=== PATIENT | male | born 1955 | race Caucasian/White ===

== ENCOUNTER → 2019-10-01 10:29 | Outpatient (CLI) | payer OTHER, SELFPAY ==
[2019-10-01 12:20] LABS: Hemoglobin A1C% w Est Avg Glu 6.7 % (4.0-6.0)
[2019-10-01 12:22] LABS: Alanine Aminotransferase 26 IU/L (<50); Albumin 4.1 g/dL (3.5-5.0); Albumin Globulin Ratio 1.4 (1.0-2.8); Alkaline Phosphatase 77 U/L (38-126); Aspartate Aminotransferase 25 IU/L (17-59); BUN Creatinine Ratio 16.3 (6-22); Bilirubin Total 0.6 mg/dL (0.2-1.3); Blood Urea Nitrogen 14 mg/dL (9-20); Calcium 9.5 mg/dL (8.4-10.2); Carbon Dioxide 23 mmol/L (22-32); Chloride 106 mmol/L (98-107); Cholesterol 181 mg/dL (140-199); Estimated Glomerular Filt Rate > 60.0 mL/min (>60); Glucose 124 mg/dL (80-110); HDL Cholesterol 50 mg/dL (40-60); HEMOLYSIS < 15 (0-50); LDL Cholesterol Calculated 113 mg/dL (<100); Potassium 4.2 mmol/L (3.4-5.1); Sodium 138 mmol/L (137-145); Total Protein 7.1 g/dL (6.3-8.2); Triglycerides 91 mg/dL (35-150)
[2019-10-01 12:54] LABS: Creatinine Urine Random 156.1 mg/dL
[2019-10-01 12:59] LABS: Microalbumi Creatinin Ratio Ur 3.8 ug/mg CR (<30); Microalbumin Urine Random < 0.6 mg/dL (0-1.6)
--- NOTE | 2019-10-01 16:25 | DIET.PN ---
Diabetes Intake: Initial Assessment Assess: Mr. Griggs is 64 YOm referred for type 2 diabetes. He reports not following any specific dietary guidelines for years. He has a hx of anxiety and depression and admits he has not cared much about his weight or health. He has tried several diets in the past including atkins and zone. He used to be very active with his , but does not do much outside of walking his dog now. He monitors his fasting blood glucose a few times/week. He does appear ready for change. Labs: Per pt report: 10.9 Meds: met 500 mg BID Diet: per 24 hr recall: B: coffee L: oatmeal w/ sugar and raisins Sn: sandwich D: varies, often just snacks Wt: 320lb Ht: 74in BMI: 41 DX: Altered nutrition related laboratory values related to impaired glucose metabolism, lack of previous exposure to nutrition information as evidenced by pt report, diagnosis of diabetes, previous diet high in refined carbohydrates. Intervention: 1. Completed intake assessment. Discussed barriers to care. 2. Discussed pathophysiology of diabetes. Reviewed A1c and its correlation to blood glucose numbers. Discussed recommended BG ranges. 3. Discussed importance of self-monitoring, how often, and when to check. Provided demonstration on use of glucometer. 4. Reviewed hyper/hypoglycemia and treatment. 5. Reviewed safe disposal of equipment (strip/lancets/insulin needles). 6. Created SMART goals for pt self-care and success. 7. Discussed program curriculum outline and class needs based on individual goals. SMART Goals: 1. Pt would like to lose 15# (5%) in the next 3 mo with a goal of 230# through dietary changes and exercise. Discussed joining a fitness center of accountability. 2. Pt will monitor FBG and alternate 2hr PP meal time. Monitor/Evaluate: Anticipate good compliance. Pt will attend full DSME program. Nutrition class scheduled for October 08.
== END ==
PROVIDERS: Family Provider Family Medicine; PCP Family Medicine; Referring Provider Family Medicine; Visit Provider Family Medicine
DX: E11.9 Type 2 diabetes mellitus without complications (principal); Z79.84 Long term (current) use of oral hypoglycemic drugs; E66.9 Obesity, unspecified; Z68.41 Body mass index [BMI] 40.0-44.9, adult; Z71.3 Dietary counseling and surveillance
CPT/HCPCS: 36415; 80053; 80061; 82043; 82570; 83036; 84443; G0108

== ENCOUNTER → 2019-10-09 09:56 | Outpatient (CLI) | payer OTHER, SELFPAY ==
--- NOTE | 2019-10-09 12:26 | DIET.PN ---
Diabetes: Healthy Eating 2 Intervention: Fats effects on glucose, weight, heart disease, cholesterol Sat Vs Unsat Protein- animal and plant based options Low, med, high fat meats Sugar substitutes Sodium Health claims Grocery shopping guidelines Eating away from home Alcohol Sick day guidelines Ketone Testing
== END ==
PROVIDERS: Family Provider Family Medicine; PCP Family Medicine; Referring Provider Family Medicine; Visit Provider Family Medicine
DX: E11.9 Type 2 diabetes mellitus without complications (principal); Z71.3 Dietary counseling and surveillance
CPT/HCPCS: G0109

== ENCOUNTER → 2019-10-14 10:04 | Outpatient (CLI) | payer OTHER, SELFPAY ==
--- NOTE | 2019-10-14 12:11 | DIET.PN ---
Diabetes Physiology: Intervention 1. Diabetes physiology 2. Detecting and treatment of acute and chronic complications 3. Diagnosis of and difference in types of diabetes 4. Self-monitoring and pattern management a. Demonstrate glucometer and control testing b. Explain BG results and action to take when out of range. 5. Foot , eye, dental care 6. Medications a. Oral medication classification b. Injectable c. Insulin i. Injection protocol ii. Other delivery methods
== END ==
PROVIDERS: Family Provider Family Medicine; PCP Family Medicine; Referring Provider Family Medicine; Visit Provider Family Medicine
DX: E11.9 Type 2 diabetes mellitus without complications (principal); Z71.3 Dietary counseling and surveillance
CPT/HCPCS: G0109

== ENCOUNTER → 2019-10-23 09:43 | Outpatient (CLI) | payer OTHER, SELFPAY ==
--- NOTE | 2019-10-23 11:39 | DIET.PN ---
Exercise/Lifestyle change: 1. Importance of exercise 2. FITT (frequency, intensity, time, type) 3. Strength training tips and guidelines 4. Glucose monitoring/ranges before and after a. Carbohydrate needs based on glucose ranges and duration/intensity of exercise b. Rule of 15 5. Proper foot attire 6. Developing strategies for behavior change 7. SMART Goal Setting 8. Home exercise routine demonstration (as a class)
== END ==
PROVIDERS: Family Provider Family Medicine; PCP Family Medicine; Referring Provider Family Medicine; Visit Provider Family Medicine
DX: E11.9 Type 2 diabetes mellitus without complications (principal); Z71.3 Dietary counseling and surveillance
CPT/HCPCS: G0109

== ENCOUNTER → 2019-10-28 14:19 | Outpatient (CLI) | payer OTHER, SELFPAY ==
--- NOTE | 2019-10-28 16:30 | DIET.PN ---
Diabetes: Healthy Eating 1 Intervention: ? Discussed pathophysiology of diabetes and impact of nutrition/diet on blood sugar control.? Discussed fed versus non-fed state.?? ? Reviewed importance of Balance, Variety, and Moderation. ? Discussed the effect of carbohydrates/protein/fat on blood sugar control.? ? Stressed importance of consistent carbohydrate intake at each meal and provided instructions for recommended servings/portions of carbohydrates/protein per meal. Provided educational material. ? Reviewed carbohydrate counting and measuring carbohydrate content via serving sizes and reading nutrition labels.? Provided handouts.?? ? Discussed the difference between simple versus complex carbohydrates and the effect of fiber on blood sugar control.? Discussed various methods to increase fiber content in diet. ? Discussed the plate method for creating more carbohydrate conscious balanced meals. ? Stressed importance of meal timing and not going >4-5 hours between meals. Encouraged adding protein to evening snack to support glucose control overnight. ? Discussed importance of making dietary habits part of lifestyle change.
== END ==
PROVIDERS: Family Provider Family Medicine; PCP Family Medicine; Referring Provider Family Medicine; Visit Provider Family Medicine
DX: E11.9 Type 2 diabetes mellitus without complications (principal); Z71.3 Dietary counseling and surveillance
CPT/HCPCS: G0109

== ENCOUNTER → 2019-11-05 09:55 | Outpatient (CLI) | payer OTHER, SELFPAY ==
[2019-11-05 09:57] VITALS: BMI 40.9
--- NOTE | 2019-11-05 11:07 | DIET.PN ---
DIABETES Nutrition Initial Assessment:? ASSESS:??Mr. Campos is a 64 yom??referred for type 2 diabetes seen as part of DSME program. He reports biggest changes to dietary habits include reduced portion sizes and consuming less/infrequent sweets and treats. He continues to walk daily, but has not yet purchased home fitness equipment or began working with a horse trainer. He does endorse feeling more excited to make some changes and feels the support of the diabetes program has been motivating. ??? LABS: Per pt report:? 6.7 (10.9 at intake) Lipids: Chol: 181 LDL: 113 HDL: 50 Tr ? MEDS:?? metformin 500mg BID ? DIET: Per 24-hour recall:? B: coffee L: oatmeal w/ raisins Sn: sandwich D: varies Eating Out: none Changes in Appetite: no change Nutrition Supplements: ? Weight: 318lb Height: 74in BMI: ? 40.8 ? Exercise:? walks his dog daily BP: 127/80 NUTRITION DX 1. Altered Nutrition related labs related to impaired glucose metabolism, lack of previous exposure to accurate nutrition information as evidenced by pt report, dx of diabetes, previous diet high in refined carbohydrates.? INTERVENTION(s): 1. Reviewed pathophysiology of diabetes and impact of nutrition/diet on blood sugar control.? Discussed fed versus non-fed state.?? 2. Discussed the effect of carbohydrates/protein/fat on blood sugar control.? Stressed importance of consistent carbohydrate intake at each meal and provided instructions for recommended servings/portions of carbohydrates/protein per meal. Provided pt with educational material. 3. Reviewed carbohydrate counting and measuring carbohydrate content via serving sizes and reading nutrition labels.? Provided handouts.?? 4.Discussed the difference between simple versus complex carbohydrates and the effect of fiber on blood sugar control.? Discussed various methods to increase fiber content in diet. 5. Stressed importance of meal timing and not going >4-5 hours between meals. Encouraged adding protein to evening snack to support glucose control overnight. Patient agreeable. 6. Discussed healthy weight loss goals of 1-2lbs per week through diet and exercise.? Pt agreeable to walking at least 30 minutes daily. 7. Recommend monitoring fasting and alternating 2 hr PP mealtime glucose. MONITOR/EVALUATE: Anticipate good compliance.? Nutrition follow-up scheduled for 1 month.
== END ==
PROVIDERS: Family Provider Family Medicine; PCP Family Medicine; Referring Provider Family Medicine; Visit Provider Family Medicine
DX: E11.9 Type 2 diabetes mellitus without complications (principal); Z71.3 Dietary counseling and surveillance
CPT/HCPCS: G0109

== ENCOUNTER 2021-03-03 08:05 | Emergency (ER) | payer MEDICARE, SELFPAY ==
[2021-03-03 08:12] VITALS: BP 160/86; PULSE 85; RESP 17; TEMP 36.5; O2SAT 95; BMI 94.2
--- NOTE | 2021-03-03 08:21 | DI.CT.S_ITS ---
PROCEDURE: CT LUMBAR SPINE WO CON INDICATIONS: Pain/right hip/normal x-rays TECHNIQUE: Noncontrast 3 mm thick sections acquired from the T12 level to the sacrum. Sagittal and coronal reformats were constructed. For radiation dose reduction, the following was used: automated exposure control. COMPARISON: None. FINDINGS: Image quality: Excellent. Bones: No acute fracture. Multilevel degenerative endplate sclerosis and spurring. Diffuse facet arthropathy. Diffuse mild disc space narrowing throughout the lumbar spine except at L5-S1 where there is severe disc height loss. Scattered small Schmorl's nodes are seen primary involving the inferior endplates of L1, L2 and L3. Straightening of the normal lordotic curvature. Dense sclerotic lesion involving the upper anterior aspect of the L4 vertebral body measuring 1.2 cm T12-L1: No bony canal or foraminal stenosis. L1-L2: No bony canal or foraminal stenosis identified. L2-L3: No bony canal or foraminal stenosis. L3-L4: No bony canal or foraminal stenosis. L4-L5: No bony canal stenosis. Broad-based posterior disc bulge with moderate canal narrowing. Partial effacement of both lateral recesses with bilaterally symmetric appearance. No bony foraminal narrowing. L5-S1: Broad-based posterior disc bulge. Mild canal narrowing. No bony canal stenosis. Lateral recesses appear grossly patent. Mild bony foraminal narrowing. Soft tissues: No retroperitoneal masses or hematomas. Visualized aorta is normal in caliber. IMPRESSION: Lower lumbar spondylosis and facet arthropathy. No high-grade bony foraminal stenoses. Moderate canal narrowing at L4-L5. Elsewhere no high-grade bony canal narrowing. No acute fracture Scattered small Schmorl's nodes. Further evaluation with MRI to assess for adjacent acute marrow edema could be performed as clinically warranted. Dictated by: Hamzah Avila M.D. on 03/03/2021 at 10:51 Approved by: Hamzah Avila M.D. on 03/03/2021 at 10:57
--- NOTE | 2021-03-03 08:21 | DI.CT.S_ITS ---
PROCEDURE: CT PEL WO CON INDICATIONS: Pain/right hip/normal x-rays TECHNIQUE: Noncontrast 3 mm axial sections acquired through the bony pelvis, with coronal and sagittal reformatting. COMPARISON: None. FINDINGS: Image quality: Excellent. Bones: No acute fracture identified. Mild bilateral hip joint degeneration with symmetric appearance. Mild degenerative sclerotic changes at the pubis symphysis. The sacroiliac joints appear grossly unremarkable. Lower lumbar spondylosis and facet disease. Densely sclerotic lesion involving the L4 vertebral body. This measures approximately 9 mm Soft tissues: Bladder distended otherwise intrapelvic contents grossly unremarkable. IMPRESSION: Mild bilateral symmetric hip joint degeneration. If the patient's pain or other symptoms persist, consider further evaluation with MRI Densely sclerotic lesion involving the L4 vertebral body. Although this could represent bone island cannot exclude osseous metastasis given the absence of any relevant prior comparison studies. Recommend clinical correlation. If necessary, further evaluation with bone scan could be performed. Dictated by: Hamzah Avila M.D. on 03/03/2021 at 9:48 Approved by: Hamzah Avila M.D. on 03/03/2021 at 9:51
--- NOTE | 2021-03-03 08:22 | ED_ITS ---
HPI - Extremity Injury (Lower) General Chief Complaint: Extremity Injury, Lower Stated Complaint: having pain in rt hip Time Seen by Provider: 03/03/21 08:12 Source: patient Mode of arrival: Ambulatory Limitations: no limitations History of Present Illness HPI Narrative: Patient seen by his family doctor in [place] within the last 3 weeks for this right pelvis/hip pain. Had x-rays done and patient states no acute abnormality. Denies any fall injury. No leg or foot numbness tingling or weakness. No saddle paresthesia. No bowel or bladder incontinence or retention. Patient complains of right gluteal pain/right hip pain. Denies any direct low back pain. No history of chronic back pain or surgery or physical therapy. Has had events of heavy lifting with work related. Denies any chronic back pain. No fever chills. No prior history of hip problems. Primary care had him on ibuprofen only. It has not helped the pain. drove him here this morning. Related Data Previous Rx's Medication Instructions Recorded hydrocodone 5 mg-acetaminophen 325 1 tab PO Q6H PRN #16 tab 03/03/21 mg tablet ondansetron 4 mg disintegrating 4 mg PO Q8H PRN #10 tab 03/03/21 tablet Allergies Allergy/AdvReac Type Severity Reaction Status Date / Time No Known Drug Allergies Allergy Verified 03/03/21 11:32 Review of Systems Review of Systems Narrative: GENERAL: Denies chills, fatigue, malaise, fever, sweats. HEENT: Denies sinus pain, ear pain, sore throat RESPIRATORY: Denies dyspnea, cough CARDIOVASCULAR: Denies chest pain, palpitations GASTROINTESTINAL: Denies nausea, vomiting, abdominal pain : Denies dysuria, frequency, hematuria MUSCULOSKELETAL: Positivemuscle or bony pain SKIN: Denies rash, skin lesions NEUROLOGIC: Denies weakness, numbness, no incontinence or retention ROS Unobtainable: All systems reviewed & are unremarkable except as noted in HPI and below Patient History Social History eating out: rarely or never Type(s) of exercise: walking Exam Narrative Exam Narrative: GENERAL: in no distress, not toxic not dyspneic HEAD: Normocephalic. EYES: Pupils equal round No scleral icterus. ENT: Mucous membranes moist. NECK: Trachea midline. CARDIOVASCULAR: Regular rate and rhythm without murmurs RESPIRATORY: Clear to auscultation. Breath sounds equal bilaterally. No wheezes, rales, or rhonchi. GASTROINTESTINAL: Abdomen soft, non-tender EXTREMITIES: No gross deformities. BACK: No flank tenderness. No midline tenderness or step-off. Increased pain with leaning forward. Right straight leg pain at 30?, pain in the right pelvis/hip. NEURO: AOx4. Slightly antalgic gait due to pain to the right hip pelvis area. No footdrop. Strong bilateral patellar reflexes and light touch intact to foot and toes. Shoes and socks removed. Feet warm soft and pink. Strong bilateral ankle flexion extension. SKIN: Warm and dry PSYCH: Not anxious, is cooperative Initial Vital Signs Initial Vital Signs: Vital Signs Temperature 97.7 F 03/03/21 08:12 Pulse Rate 85 03/03/21 08:12 Respiratory Rate 17 03/03/21 08:12 Blood Pressure 160/86 H 03/03/21 08:12 Pulse Oximetry 95 03/03/21 08:12 Course Course Course Narrative: No new issues during course of stay Orders Ordered: ED Orders 03/03/21 08:21 CT lumbar spine wo con Stat CT pelvis wo con Stat Discontinued Medications Hydrocodone Bitart/Acetaminophen (Hydrocodone/Acet 5/325 Tablet) 2 tab PO NOW ONE Stop: 03/03/21 08:23 Last Admin: 03/03/21 08:31 Dose: 2 tab Documented by: DESTINY Ketorolac Tromethamine (Ketorolac 30 Mg/Ml Vial) 30 mg IM NOW ONE Stop: 03/03/21 11:27 Last Admin: 03/03/21 11:33 Dose: 30 mg Documented by: RAUL Ondansetron HCl (Ondansetron 4 Mg Odt) 4 mg SL NOW ONE Stop: 03/03/21 08:23 Last Admin: 03/03/21 08:31 Dose: 4 mg Documented by: DESTINY Oxycodone/Acetaminophen (Oxycodone/Acetaminophen 5/325 Tablet) 2 tab PO NOW ONE Stop: 03/03/21 11:27 Last Admin: 03/03/21 11:33 Dose: 2 tab Documented by: RAUL Reevaluation(s) Reevaluation #1: Pain controlled. No laboratory studies indicated this time. No fever chills. Reviewed results with patient agrees with treatment plan and follow-up with primary care for outpatient MRI of the hip as well as the lumbar spine. 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:16 Vital Signs Vital signs: Vital Signs - 8 hr 03/03/21 08:12 03/03/21 11:30 Temperature 97.7 F Pulse Rate 85 76 Respiratory Rate 17 15 Blood Pressure 160/86 H 126/77 Pulse Oximetry 95 99 MDM - Extremity Injury (Lower) Differential Diagnosis Differential diagnosis: Likely other (Hip arthritis/sciatica/degenerative disc disease of the lumbar spine.) Imaging Data CT scan lumbar spine: Radiologist's Impression: [address] [address] [address] Scan Report Signed Patient: Rohit Griggs MR#: [id number] : 1955 Acct:[id number] Age/Sex: 66 / M Date of Service: 03/03/21 Loc: ED Accession Number: [id number] ?? Procedure: CT pelvis wo con Ordering Provider: Maxi Spivey MD PROCEDURE:? CT PEL WO CON ? INDICATIONS:? Pain/right hip/normal x-rays ? TECHNIQUE:? Noncontrast 3 mm axial sections acquired through the bony pelvis, with coronal and sagittal reformatting.? ? COMPARISON:? None. ? FINDINGS:? Image quality:? Excellent.? ? Bones:? No acute fracture identified.? Mild bilateral hip joint degeneration with symmetric appearance.? Mild degenerative sclerotic changes at the pubis symphysis.? The sacroiliac joints appear grossly unremarkable.? Lower lumbar spondylosis and facet disease.? Densely sclerotic lesion involving the L4 vertebral body.? This measures approximately 9 mm ? Soft tissues:? Bladder distended otherwise intrapelvic contents grossly unremarkable. ? ? IMPRESSION:? ? Mild bilateral symmetric hip joint degeneration. If the patient's pain or other symptoms persist, consider further evaluation with MRI ? Densely sclerotic lesion involving the L4 vertebral body.? Although this could represent bone island cannot exclude osseous metastasis given the absence of any relevant prior comparison studies.? Recommend clinical correlation.? If necessary, further evaluation with bone scan could be performed. ? Dictated by: Hamzah Avila M.D. on 03/03/2021 at 9:48 ? ? Approved by: Hamzah Avila M.D. on 03/03/2021 at 9:51 ? CT scan pelvis: Radiologist's Impression: [address] [address] [address] Scan Report Signed Patient: Rohit Griggs MR#: [id number] : 1955 Acct:[id number] Age/Sex: 66 / M Date of Service: 03/03/21 Loc: ED Accession Number: [id number] ?? Procedure: CT lumbar spine wo con Ordering Provider: Maxi Spivey MD PROCEDURE:? CT LUMBAR SPINE WO CON ? INDICATIONS:? Pain/right hip/normal x-rays ? TECHNIQUE:? Noncontrast 3 mm thick sections acquired from the T12 level to the sacrum.? Sagittal and coronal reformats were constructed.? For radiation dose reduction, the following was used:? automated exposure control.? ? COMPARISON:? None. ? FINDINGS:? Image quality:? Excellent.? ? Bones:? No acute fracture. Multilevel degenerative endplate sclerosis and spurring.? Diffuse facet arthropathy.? Diffuse mild disc space narrowing throughout the lumbar spine except at L5-S1 where there is severe disc height loss.? Scattered small Schmorl's nodes are seen primary involving the inferior endplates of L1, L2 and L3. Straightening of the normal lordotic curvature.? Dense sclerotic lesion involving the upper anterior aspect of the L4 vertebral body measuring 1.2 cm ? T12-L1:? No bony canal or foraminal stenosis. ? L1-L2:? No bony canal or foraminal stenosis identified. ? L2-L3:? No bony canal or foraminal stenosis. ? L3-L4:? No bony canal or foraminal stenosis. ? L4-L5:? No bony canal stenosis.? Broad-based posterior disc bulge with moderate canal narrowing. Partial effacement of both lateral recesses with bilaterally symmetric appearance.? No bony foraminal narrowing. ? L5-S1:? Broad-based posterior disc bulge.? Mild canal narrowing.? No bony canal stenosis. ?Lateral recesses appear grossly patent.? Mild bony foraminal narrowing. ? Soft tissues:? No retroperitoneal masses or hematomas.? Visualized aorta is normal in caliber.? ? ? IMPRESSION:? ? Lower lumbar spondylosis and facet arthropathy.? No high-grade bony foraminal stenoses. ? Moderate canal narrowing at L4-L5.? Elsewhere no high-grade bony canal narrowing. ? No acute fracture ? Scattered small Schmorl's nodes.? Further evaluation with MRI to assess for adjacent acute marrow edema could be performed as clinically warranted. ? Dictated by: Hamzah Avila M.D. on 03/03/2021 at 10:51 ? ? Approved by: Hamzah Avila M.D. on 03/03/2021 at 10:57 ? MDM Narrative Medical decision making narrative: Appropriate for discharge home. No blood work indicates time. No fever. Pain is controlled. Has a regional refrigerated cdl truck driver. Has primary care to follow-up for outpatient MRI. Return precautions reviewed with patient. Prescription for pain medication written is appropriate as failed outpatient ibuprofen NSAIDs. No steroids at this time. Discharge Plan Departure Patient Disposition: Home Clinical Impression: DDD (degenerative disc disease), lumbar, Acute pain of right hip Instructions: Degenerative Disc Disease, DI for Sciatica, DI for Hip Pain Activity Restrictions/Additional Instructions: No driving or operating machinery today. Or when taking prescribed pain medication. See family doctor within a week for recheck as well as for scheduling outpatient MRI of your lower back and your right hip. Return if worse if any questions or concerns or any fever. Prescriptions: New hydrocodone-acetaminophen 5-325 mg tablet 1 tab PO Q6H PRN (Reason: pain) Qty: 16 0RF ondansetron 4 mg tablet,disintegrating 4 mg PO Q8H PRN (Reason: nausea and vomiting) Qty: 10 0RF Referrals: Ranjeet Andrea MD [Primary Care Provider] -
[2021-03-03] MEDS: HYDROCODONE/ACET 5/325 TABLET 2 TAB PO (08:31)
[2021-03-03] MEDS: ONDANSETRON 4 MG ODT SL (08:31)
[2021-03-03 11:30] VITALS: BP 126/77; PULSE 76; RESP 15; O2SAT 99
[2021-03-03] MEDS: OXYCODONE/ACETAMINOPHEN 5/325 TABLET 2 TAB PO (11:33)
[2021-03-03] MEDS: KETOROLAC 30 MG/ML VIAL IM (11:33)
== END 2021-03-03 11:47 | disposition home or self-care (01) ==
PROVIDERS: Emergency Provider Emergency Medicine; Family Provider Family Medicine; PCP Family Medicine
DX: M25.551 Pain in right hip (principal); M51.36 Other intervertebral disc degeneration, lumbar region
CPT/HCPCS: 72131; 72192; 96372; 99284; J1885

== ENCOUNTER → 2021-03-11 14:03 | Outpatient (CLI) | payer MEDICARE, SELFPAY ==
--- NOTE | 2021-03-11 | DI.MRI.S_ITS ---
PROCEDURE: MR LUMBAR SPINE WO CON INDICATIONS: Radiculopathy, lumbar region TECHNIQUE: Noncontrast sagittal T1 spin echo and T2 fast echo, sagittal STIR, axial T1 and T2 fast spin echo through the lumbar spine. In cases with scoliosis, additional coronal T2 fast spin echo may be performed. COMPARISON: [facility], CT, CT LUMBAR SPINE WO CON, 03/03/2021, 8:54. FINDINGS: Image quality: Excellent. Alignment and Curvature: There is minimal retrolisthesis seen at L2-L3 and L5-S1. Bone Marrow: Marrow is of normal overall signal. Scattered foci are seen, which are hyperintense on T1-weighted and T2-weighted imaging, which are most consistent with benign vertebral body hemangiomas. Focal sclerosis is seen at the superior endplate of L4 anteriorly, which is better seen on the prior CT examination. No acute vertebral body compression fractures. Spinal Cord: Conus medullaris terminates at the L1 level. Visualized cord demonstrates normal signal and size. Paraspinous Soft Tissues: No paravertebral masses. T12-L1: Normal appearance. L1-L2: The disc height is well-preserved. Loss of disc signal is seen at this level. No significant neural foraminal or central canal narrowing can be seen. L2-L3: Mild loss of disc height is seen. Loss of disc signal is seen. Mild generalized disc bulge is seen. Mild facet joint hypertrophy is seen. Bridging endplate osteophytes are seen. No significant neural foraminal or central canal narrowing can be seen. L3-L4: The disc height is well-preserved. Loss of disc signal is seen at this level. Mild generalized disc bulge is seen. Moderate facet joint hypertrophy is seen. Mild to moderate bilateral neural foraminal narrowing can be seen. The central canal is widely patent. L4-L5: The disc height is well-preserved. Loss of disc signal is seen at this level. Mild to moderate disc bulge is seen, which is eccentric to the right, with a right foraminal disc protrusion. There is a disc extrusion seen, with a sequestered disc fragment posterior to the L4 vertebral body on the right, which measures 1.4 cm craniocaudal by 1.4 cm transversely, with an AP measurement of 0.8 cm. Moderate to prominent facet hypertrophy is seen. There is moderate to severe right-sided and at least moderate left-sided neural foraminal narrowing seen. There is a degree of compression seen upon the exiting nerve roots. Moderate central canal narrowing is seen. L5-S1: At least moderate loss of disc height and disc signal can be seen. Reactive marrow endplate changes are seen, which are hyperintense on T1-weighted and T2-weighted imaging and most consistent with fatty metaplasia (Modic type II changes). Mild to moderate disc bulge is seen, with a slight central disc protrusion. Mild to moderate facet hypertrophy is seen. No significant neural foraminal or central canal narrowing can be seen. IMPRESSION: There is a sequestered disc fragment seen on the right side posterior to the L4 vertebral body, which is believed to have been extruded from the L4-L5 disc level. There is associated moderate central canal narrowing and moderate to severe bilateral neural foraminal narrowing at this level. Milder degenerative changes are seen elsewhere. Dictated by: Gil Shah M.D. on 03/11/2021 at 14:33 Approved by: Gil Shah M.D. on 03/11/2021 at 14:43
== END ==
PROVIDERS: Family Provider Family Medicine; PCP Family Medicine; Referring Provider Family Medicine; Visit Provider Family Medicine
DX: M47.26 Other spondylosis with radiculopathy, lumbar region (principal); M47.27 Other spondylosis with radiculopathy, lumbosacral region
CPT/HCPCS: 72148

== ENCOUNTER → 2022-06-09 12:39 | Outpatient (CLI) | payer MEDICARE, OTHER, SELFPAY ==
--- NOTE | 2022-06-09 | DI.CT.S_ITS ---
PROCEDURE: CT SINUS SCREEN WO CON INDICATIONS: NASAL OBSTRUCTION/CHRONIC PANSINUSITIS TECHNIQUE: Noncontrast 3.0 mm axial images acquired from the frontal sinuses to the mid-sella, with coronal and sagittal reformats. For radiation dose reduction, the following was used: automated exposure control, adjustment of mA and/or kV according to patient size. COMPARISON: None. FINDINGS: Image quality: Excellent. Maxillary Sinuses: Mild 3 mm left maxillary sinus mucosal thickening without remodeling without remodeling Ethmoid Air Cells: No bony remodeling or destruction. Sinuses are clear. Sphenoid Sinuses: No bony remodeling or destruction. Sinuses are clear. Frontal Sinuses: Frontal sinuses are both aplastic and non pneumatized Ostiomeatal Complexes: Ostiomeatal complexes are patent. No Lito cells. Miscellaneous: Visualized intra-orbital contents are normal. No adri bullosa or paradoxical turbinate curvature. No nasal septal deviation. IMPRESSION: Mild left maxillary mucosal sinus disease without remodeling Approved by: Bill Chapa M.D. on 06/09/2022 at 16:34
== END ==
PROVIDERS: Family Provider Family Medicine; PCP Family Medicine; Referring Provider Otolaryngology; Visit Provider Otolaryngology
DX: J32.4 Chronic pansinusitis (principal); J34.89 Other specified disorders of nose and nasal sinuses
CPT/HCPCS: 70486

== ENCOUNTER → 2022-08-24 19:31 | Outpatient (CLI) | payer MEDICARE, OTHER, SELFPAY ==
--- NOTE | 2022-08-24 19:33 | DI.MRI.S_ITS ---
PROCEDURE: MR KNEE LT WO CON INDICATIONS: Pain in left knee TECHNIQUE: Noncontrast sagittal PD fast spin echo and T2 fast spin echo with fat saturation, sagittal 3-D FLASH with fat saturation; coronal T1 spin echo and PD fast spin echo with fat saturation, and axial PD fast spin echo with fat saturation through the knee. COMPARISON: None. FINDINGS: Image quality: Diagnostic, patient motion is noted. Menisci: Complex oblique tear involving posterior horn of medial meniscus is seen extending to both superior and inferior articulating surface. The lateral meniscus is intact. The meniscal root ligaments appear intact. Cruciate ligaments: The anterior cruciate ligament is thickened. The posterior cruciate ligament is intact. Medial structures: The medial collateral ligament appears thickened with intrasubstance T2 hyperintense signal. The posterior oblique ligament, semimembranosus tendon insertions, oblique popliteal ligament, and meniscocapsular junction appear intact. Visualized portions of the pes anserinus tendons appear normal. No abnormal bursal fluid. Lateral structures: The lateral collateral ligament, long and short heads of the biceps femoris tendon appear intact. The popliteus tendon appears normal; the popliteofibular ligament appears intact. Iliotibial band appears normal. Anterior structures: The quadriceps and patellar tendons appear intact. Patellar alignment is normal. No femoral trochlear dysplasia or ventral trochlear prominence. No edema in the infrapatellar fat pad. Bones and cartilage: No bone marrow contusions or fractures. 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 Joint space: There is small to moderate knee joint fluid. There is a 2.7 x 1.2 x 8.8 cm Sanon's cyst. No gross intra-articular loose bodies. Normal appearing synovial plicae are incidentally noted. IMPRESSION: 1. Complex oblique tear involving posterior horn of medial meniscus extending to inferior articulating surface. The lateral meniscus is intact. 2. Suggestion of degenerative changes/sprain of ACL. No ACL rupture. The PCL is intact. 3. Moderate grade MCL sprain/partial-thickness tear. 4. Eukh-mk-eqapixqf tricompartmental osteoarthritis and chondromalacia most notably in medial femoral tibial compartment. No fracture or dislocation. Small to moderate joint effusion, no gross loose bodies. Sanon's cyst as above. Dictated by: Milo Crowder M.D. on 08/25/2022 at 8:25 Approved by: Milo Crowder M.D. on 08/25/2022 at 8:51
== END ==
PROVIDERS: Family Provider Family Medicine; PCP Family Medicine; Referring Provider Family Medicine; Visit Provider Family Medicine
DX: S83.232A Complex tear of medial meniscus, current injury, left knee, initial encounter (principal); S83.412A Sprain of medial collateral ligament of left knee, initial encounter; M25.562 Pain in left knee; M17.12 Unilateral primary osteoarthritis, left knee; M94.262 Chondromalacia, left knee; M25.462 Effusion, left knee; M71.22 Synovial cyst of popliteal space [Baker], left knee
CPT/HCPCS: 73721

== ENCOUNTER → 2022-10-09 13:52 | Outpatient (CLI) | payer MEDICARE, SELFPAY ==
[2022-10-09 14:42] LABS: Add Manual Diff / Slide Review NO; Basophils Absolute Auto 100 /uL (0-100); Basophils Percent Auto 1.1 % (0-2); Eosinophils Absolute Auto 200 /uL (0-450); Eosinophils Percent Auto 2.4 % (2-4); Hematocrit 46.1 % (41-53); Hemoglobin 15.8 g/dL (13.5-17.5); Lymphocytes Absolute Auto 1500 /uL (1100-4500); Lymphocytes Percent Auto 17.8 % (25-40); Mean Corpuscular HGB Conc 34.2 % (30-36); Mean Corpuscular Hemoglobin 30.9 PG (26-34); Mean Corpuscular Volume 90.2 fL (80-100); Monocytes Absolute Auto 700 /uL (0-900); Neutrophils Absolute Auto 5900 /uL (1500-7000); Neutrophils Percent Auto 70.7 % (50-75); Platelet Count 241 X10^3/uL (150-400); Red Blood Cell Count 5.11 X10^6/uL (4.5-5.9); Red Cell Distribution Width 14.8 % (11.6-14.8); White Blood Cell Count 8.3 X10^3/uL (4.5-11.0)
[2022-10-09 14:54] LABS: Alanine Aminotransferase 41 IU/L (<50); Albumin 4.2 g/dL (3.5-5.0); Albumin Globulin Ratio 1.3 (1.0-2.8); Alkaline Phosphatase 101 U/L (38-126); Aspartate Aminotransferase 29 IU/L (17-59); BUN Creatinine Ratio 16.7 (6-22); Bilirubin Total 0.5 mg/dL (0.2-1.3); Blood Urea Nitrogen 15 mg/dL (9-20); Calcium 9.1 mg/dL (8.4-10.2); Carbon Dioxide 26 mmol/L (22-32); Chloride 105 mmol/L (98-107); Cholesterol 150 mg/dL (140-199); Estimated Glomerular Filt Rate > 60 mL/min (>60); Globulin 3.3 g/dL (1.7-4.1); Glucose 128 mg/dL (80-110); HDL Cholesterol 56 mg/dL (40-60); HEMOLYSIS < 15 (0-50); LDL Cholesterol Calculated 64 mg/dL (<100); Potassium 3.6 mmol/L (3.4-5.1); Sodium 139 mmol/L (137-145); Total Protein 7.5 g/dL (6.3-8.2); Triglycerides 152 mg/dL (35-150)
[2022-10-09 15:47] LABS: Creatinine Urine Random 176.2 mg/dL; Microalbumi Creatinin Ratio Ur 7.3 ug/mg CR (<30); Microalbumin Urine Random 1.3 mg/dL (0-1.6)
[2022-10-10 07:10] LABS: Labcorp Hemoglobin (Hb) A1c 6.6 % (4.8-5.6)
== END ==
PROVIDERS: Family Provider Family Medicine; PCP Family Medicine; Referring Provider Family Medicine; Visit Provider Family Medicine
DX: E11.9 Type 2 diabetes mellitus without complications (principal)
CPT/HCPCS: 36415; 80053; 80061; 82043; 82570; 83036; 85025

== ENCOUNTER → 2022-12-22 17:27 | Outpatient (CLI) | payer MEDICARE, OTHER, SELFPAY ==
--- NOTE | 2022-12-22 17:30 | DI.MRI.S_ITS ---
PROCEDURE: MR LUMBAR SPINE WO CON INDICATIONS: LUMBAR SPONDYLOSIS TECHNIQUE: Noncontrast sagittal T1 spin echo and T2 fast echo, sagittal STIR, and T2 fast spin echo through the lumbar spine. In cases with scoliosis, additional coronal T2 fast spin echo may be performed. COMPARISON: [facility], CT, CT LUMBAR SPINE WO CON, 03/03/2021, 8:54. [facility], MR, MR LUMBAR SPINE WO CON, 03/11/2021, 14:47. [facility], CR, XR LUMBAR SPINE WITH FLEXION EXTENSION 5 VIEWS, 03/30/2021, 9:20. FINDINGS: Image quality: Excellent. Alignment and Curvature: There is minimal retrolisthesis seen at the L2-L3, L3-L4, and L5-S1 levels. Bone Marrow: Marrow is of normal overall signal. Scattered foci are seen, which are hyperintense on T1-weighted and T2-weighted imaging, which are most consistent with benign vertebral body hemangiomas. No acute vertebral body compression fractures. Spinal Cord: Conus medullaris terminates at the L1 level. Visualized cord demonstrates normal signal and size. Paraspinous Soft Tissues: No paravertebral masses. T12-L1: Normal appearance. L1-L2: No significant abnormality is seen. L2-L3: The disc height is well-preserved. Loss of disc signal is seen at this level. Bridging endplate osteophytes are seen. Mild to moderate disc bulge is seen, which is eccentric to the right. Moderate facet joint hypertrophy is seen. No significant neural foraminal or central canal narrowing can be seen. When comparison is made with the prior images, these findings are similar. L3-L4: The disc height is well-preserved. Loss of disc signal is seen at this level. Benign-appearing sclerosis can be seen along the superior endplate of the L4 level on the left, which is similar to the prior examination. No adjacent edema can be seen. Moderate generalized disc bulge is seen. Moderate facet joint hypertrophy is seen. There is nefe-dd-yikczkkq bilateral neural foraminal narrowing seen. No significant central canal narrowing is seen. No significant change from the prior. L4-L5: The disc height is well-preserved. Loss of disc signal is seen at this level. Moderate generalized disc bulge is seen. There is a superimposed central disc protrusion. There is a focal annular fissure seen posteriorly. At least moderate facet hypertrophy is seen. Moderate bilateral neural foraminal narrowing is seen. Mild central canal narrowing is seen. The previously seen extruded disc fragment is no longer seen, with improvement in the degree of central canal narrowing. L5-S1: At least moderate loss of disc height and disc signal can be seen. Reactive marrow endplate changes are seen, which are hyperintense on T1-weighted and T2-weighted imaging and most consistent with fatty metaplasia (Modic type II changes). Mild generalized disc bulge is seen. There is a superimposed central disc protrusion. Mild facet joint hypertrophy is seen. Mild bilateral neural foraminal narrowing is seen. Minimal central canal narrowing is seen. When comparison is made with the prior images, these findings are similar. IMPRESSION: Interval improved at the L4-L5 level, with the previously seen extruded disc fragment no longer seen. Otherwise, stable degenerative changes compared to 2020. Dictated by: Gil Shah M.D. on 12/22/2022 at 22:51 Approved by: Gil Shah M.D. on 12/22/2022 at 22:57
== END ==
PROVIDERS: Family Provider Family Medicine; PCP Family Medicine; Referring Provider Student in an Organized Health Care Education/Training Program; Visit Provider Student in an Organized Health Care Education/Training Program
DX: M47.816 Spondylosis without myelopathy or radiculopathy, lumbar region (principal); M47.817 Spondylosis without myelopathy or radiculopathy, lumbosacral region
CPT/HCPCS: 72148

== ENCOUNTER → 2023-02-09 08:57 | Outpatient (CLI) | payer MEDICARE, OTHER, SELFPAY ==
[2023-02-09 16:58] LABS: Hemoglobin A1C% w Est Avg Glu 5.8 % (4.0-6.0)
== END ==
PROVIDERS: Family Provider Family Medicine; PCP Family Medicine; Referring Provider Family Medicine; Visit Provider Family Medicine
DX: E11.9 Type 2 diabetes mellitus without complications (principal)
CPT/HCPCS: 36415; 83036

== ENCOUNTER → 2023-08-29 14:21 | Outpatient (CLI) | payer MEDICARE, OTHER, SELFPAY ==
--- NOTE | 2023-08-29 14:23 | DI.RAD.S_ITS ---
PROCEDURE: XR LUMBAR SPINE MIN 4V INDICATIONS: BACK PAIN TECHNIQUE: 5 views of the lumbar spine were acquired, including bilateral oblique views. COMPARISON: [facility], MR, MR LUMBAR SPINE WO CON, 12/22/2022, 17:52. FINDINGS: Bones: 5 nonrib-bearing vertebrae are present. Slight dextroconvex curvature of the lumbar spine centered at L2-L3. Multilevel degenerative changes including disc height loss, osteophytosis and facet arthropathy, severe at L5-S1. Moderate osseous neural foraminal narrowing at L5-S1. No vertebral body compression fractures. No suspicious bony lesions. Soft tissues: Overlying bowel gas pattern is normal. No suspicious soft tissue calcifications. Surgical clips in the right upper quadrant. Oblique images: No pars defects. IMPRESSION: 1. No acute osseous abnormality. 2. Multilevel degenerative changes, severe at L5-S1. Dictated by: Ru Casas M.D. on 08/29/2023 at 15:06 Approved by: Ru Casas M.D. on 08/29/2023 at 15:11
== END ==
PROVIDERS: Family Provider Family Medicine; PCP Family Medicine; Referring Provider Physical Medicine & Rehabilitation; Visit Provider Physical Medicine & Rehabilitation
DX: M47.817 Spondylosis without myelopathy or radiculopathy, lumbosacral region (principal); M54.9 Dorsalgia, unspecified
CPT/HCPCS: 72110

== ENCOUNTER 2023-09-25 14:55 | Outpatient (CLI) | payer MEDICARE, OTHER, SELFPAY ==
[2023-09-25] VITALS (9 sets, daily range): BP systolic 116–142; BP diastolic 66–85; PULSE 74–79; RESP 12–17; TEMP 36.3; O2SAT 98–100
--- NOTE | 2023-09-25 15:30 | DI.RAD.S_ITS ---
PROCEDURE: PAIN L/S TRANSFORAM INJECT ANABELA COMPARISON: None. INDICATIONS: L4-5 transforaminal CHRISTINA FINDINGS: Fluoroscopic imaging showing appropriate position of needles for L4-5 transforaminal epidural spinal injection. IMPRESSION: Intra procedural examination demonstrating appropriate positions of the needles. Dictated by: Stanislav Garcia M.D. on 09/26/2023 at 9:20 Approved by: Stanislav Garcia M.D. on 09/26/2023 at 9:24
[2023-09-25] MEDS: MIDAZOLAM 2 MG/2 ML VIAL IV (16:29)
--- NOTE | 2023-09-25 16:31 | PC.NURSE ---
patient connected to ECG monitor before the start of the case and it was noted that he appeared to be in a RBBB. Patient denies being diagnosed with this rhythm previously. Patient denies chest pain, SOB, and any other cardiac sign/symptoms. patient notified that this nurse will print a rhythm tracing for him to take to his PCP. patient stated understanding. Dr. Ford in room as this was discussed with the patient.
[2023-09-25] MEDS: BETAMETHASONE 30 MG/5 ML MDV 12 MG INJ (16:37)
[2023-09-25] MEDS: DEXAMETHASONE 10 MG/ML VIAL 20 MG INJ (16:37)
[2023-09-25] MEDS: iopamidoL 15 ML VIAL 3 ML INJ (16:37)
[2023-09-25] MEDS: BUPIVACAINE 0.25% (PF) VIAL 2 ML INJ (16:38)
--- NOTE | 2023-09-25 16:51 | PM.PROC.IR.1 ---
Date/Time/Diagnoses Date of procedure: 09/25/23 Time of procedure: 16:51 Pre-procedure diagnosis: 1. FORAMINAL STENOSIS WITH LE SYMPTOMS Procedure Notes Procedure: 1. FLUOROSCOPICALLY GUIDED CONTRAST CONTROLLED TRANSFORAMINAL EPIDURAL STEROID INJECTION - BILATERAL L4/5 TFESI Indications: Rohit is referred by Dr. Andrea for treatment of Foraminal Stenosis with bilateral LE Symptoms Physician: Adan Ford Total Fluoroscopy time (seconds): 23 Total sedation minutes: 19 Complications: none Procedure in detail & Post-procedure care: FINDINGS Foraminal Nerve Root Compression secondary to disc disease and facet hypertrophy DESCRIPTION OF PROCEDURE Following review of allergy and review of potential side effects and complications, including, but not necessarily limited to, infection, allergic reaction, local tissue breakdown, stroke, temporary or permanent nerve injury, paralysis, and possible , the patient indicated that the patient understood and agreed to proceed. An informed consent document was signed by the patient, witnessed by a nurse, and placed in the patient's chart. Additionally, other treatment options including medications, modalities, and physical therapy were reviewed with the patient. After review of previous anaesthesic history and IV conscious sedation the patient was deemed safe to proceed with today?s procedure with IV conscious sedation as ASA class II designation. Safety time-out was performed to confirm patient ID, procedure to be performed and site of procedure. IV sedation was accomplished with a combination of 2mg of Versed was administered by the RN after DO order, titrated to patient comfort during the course of the procedure while the patient remained responsive to all verbal commands In the prone position following sterile prep and drape of the lumbar region, the right L4/5 posterior neuroforamen was identified fluoroscopically. The skin was anesthetized via a 25-gauge 1.5-inch needle with 1% lidocaine solution. At this point, a 25-gauge 3.5-inch spinal needle was atraumatically introduced and advanced under fluoroscopic guidance through the posterior right L4/5 neuroforamen to approximately the anterior aspect of the canal. Depth was confirmed on lateral view. Following negative aspiration, injection of approximately 1.5cc of Isovue 200 under live fluoroscopy in the AP view confirmed excellent flow along the nerve root, into the epidural space without vascular or intrathecal uptake observed Radiological data, including multiple fluoroscopic views of the lumbosacral spine, reveal a spinal needle at the right L4/5 posterior neuroforamen. Subsequent views show flow of contrast material flowing superiorly and inferiorly along the nerve root confirming epidural flow. Subsequently, a test dose of 1.5cc of 1% lidocaine solution was administered and patient was observed for two minutes for signs or symptoms of complications, including abdominal pain, shortness of breath, bilateral upper or lower extremity weakness, nausea and vomiting, prior to steroid injection. At this point, a total of 2cc or 10mg of dexamethasone and 6mg betamethasone was injected without incident. Attention was then refocused to the left L4/5 level where the identical procedure was replicated. The procedure tolerated the procedure well without signs or symptoms of complications prior to transfer to the recovery area continued monitoring without incident. The patient was then transferred to the recovery area where they were observed for an appropriate time after the injection. The patient reported a VAS score of 7 prior to the procedure and a post-procedure VAS of 0. POST OP INSTRUCTIONS The patient was provided a Pain Log to continue to record their response to the target-specific procedure prior to follow-up visit with their referring physician. Additionally, specific post-injection care instructions and a contact number to our office were provided if concerns arise regarding possible complications associated with the procedure are suspected.
== END 2023-09-25 17:04 | disposition home or self-care (01) ==
PROVIDERS: Family Provider Family Medicine; PCP Family Medicine; Referring Provider Physical Medicine & Rehabilitation; Visit Provider Physical Medicine & Rehabilitation
DX: M48.061 Spinal stenosis, lumbar region without neurogenic claudication (principal); M51.16 Intervertebral disc disorders with radiculopathy, lumbar region; M47.26 Other spondylosis with radiculopathy, lumbar region
CPT/HCPCS: 64483; 99152; J0702; J1100; J2250; J3490

== ENCOUNTER 2024-02-21 13:55 | Outpatient (CLI) | payer MEDICARE, OTHER, SELFPAY ==
[2024-02-21] VITALS (9 sets, daily range): BP systolic 114–125; BP diastolic 55–72; PULSE 77–87; RESP 10–21; TEMP 36.4; O2SAT 99–100
--- NOTE | 2024-02-21 14:25 | DI.RAD.S_ITS ---
PROCEDURE: PAIN L/S FACET INJ/BLK 1ST ANABELA INDICATIONS: Bilateral L3-L4 and L5 medial branch block LA COMPARISON: None. FINDINGS: Fluoroscopic spot filming was performed to verify placement of spinal needles at the L3, L4 and L5 level(s), as labeled on the films. Appropriate location(s) of the needle tip(s) was confirmed by injection of iodinated contrast. IMPRESSION: Fluoro guidance was provided intraoperatively for bilateral L3, L4 and L5 medial branch block performed by ordering physician. Dictated by: Milo Crowder M.D. on 02/21/2024 at 20:39 Approved by: Milo Crowder M.D. on 02/21/2024 at 20:39
[2024-02-21] MEDS: MIDAZOLAM 2 MG/2 ML VIAL IV (15:06)
[2024-02-21] MEDS: BUPIVACAINE 0.5% (PF) 10 ML VIAL 5 ML INJ (15:12)
[2024-02-21] MEDS: LIDOCAINE 1% 20 ML 5 ML INJ (15:12)
[2024-02-21] MEDS: iopamidoL 15 ML VIAL 3 ML INJ (15:13)
--- NOTE | 2024-02-21 15:33 | PM.PROC.IR.1 ---
Date/Time/Diagnoses Date of procedure: 02/21/24 Time of procedure: 15:33 Pre-procedure diagnosis: FACET ARTHROPATHY Post-procedure diagnosis: same Procedure Notes Procedure: 1. BILATERAL L3, L4 AND L5 DIAGNOSTIC MB BLOCKS Indications: Rohit is referred by Dr. Andrea for treatment of Bilateral Axial LBP. Physician: Adan Ford Total Fluoroscopy time (seconds): 12 Total sedation minutes: 18 Complications: none Procedure in detail & Post-procedure care: DESCRIPTION OF PROCEDURE Fluoroscopically guided, contrast-controlled bilateral L3, L4 AND L5 medial branch blocks with 0.5cc of 0.5% Marcaine. Following review of allergy and review of potential side effects and complications, including, but not necessarily limited to, infection, allergic reaction, local tissue breakdown, nerve injury, paralysis, stroke and possible , the patient indicated that the patient understood and agreed to proceed. An informed consent document was signed by the patient, witnessed by a nurse, and placed in the patient's chart. After review of previous anaesthesic history and IV conscious sedation the patient was deemed safe to proceed with today's procedure with IV conscious sedation as ASA class II designation. Safety time-out was performed to confirm patient ID, procedure to be performed and site of procedure. IV sedation was accomplished with a combination of 2mg of Versed was administered by the RN after DO order, titrated to patient comfort during the course of the procedure while the patient remained responsive to all verbal commands In the prone position, following sterile prep and drape of the lumbar region, the right L3, L4 AND L5 anatomical location of the medial branch of the dorsal ramus was identified fluoroscopically. Subsequently an anesthetic skin wheal using 1% lidocaine solution was initiated at each of the anatomical spots. Subsequently then a 22-gauge 3.5-inch spinal needle was atraumatically introduced and advanced under fluoroscopic guidance at each of the corresponding sites at the right L3, L4 and L5 MB. After negative aspiration, 0.2cc of Isovue 200 was injected, confirming placement without vascular or intrathecal uptake. Subsequently then 0.5cc of 0.5% Marcaine solution was injected at each of the corresponding sites at the right L3, L4 and L5 medial branch locations. The identical procedure was replicated on the left. The patient tolerated the procedure well without signs or symptoms of complications. The patient tolerated the procedure well without signs or symptoms of complications prior to transfer to the recovery area continued monitoring without incident. Post-procedure, the patient was monitored initiating provocative activities to measure the amount of relief from block of the facetogenic pain. The patient reported a VAS of 7 prior to the procedure and a post-procedure VAS of 1. It has been a pleasure to assist in the diagnostic and therapeutic care of your patient. POST OP INSTRUCTIONS The patient was provided with a Pain Log to complete over the next several hours and subsequent days prior to the patient's follow up with the ordering physician. If the patient has street and building decorator relief to the solution applied, then they may be a candidate for medial branch rhizotomy. The patient is aware, was provided, once again, with a Pain Log and will follow up with the referring physician for review and clinical correlation
== END 2024-02-21 15:55 | disposition home or self-care (01) ==
PROVIDERS: Family Provider Family Medicine; PCP Family Medicine; Referring Provider Physical Medicine & Rehabilitation; Visit Provider Physical Medicine & Rehabilitation
DX: M47.816 Spondylosis without myelopathy or radiculopathy, lumbar region (principal)
CPT/HCPCS: 64493; 64494; 99152; J2250

== ENCOUNTER 2024-06-03 13:20 | Outpatient (CLI) | payer MEDICARE, OTHER, SELFPAY ==
[2024-06-03] VITALS (8 sets, daily range): BP systolic 110–128; BP diastolic 56–70; PULSE 67–79; RESP 14–18; TEMP 36.4; O2SAT 99–100
--- NOTE | 2024-06-03 13:21 | DI.RAD.S_ITS ---
PROCEDURE: PAIN L/S FACET INJ/BLK 1ST ANABELA INDICATIONS: Bilateral L3-L4 and L5 medial branch block SA COMPARISON: [facility], , PAIN L/S FACET INJ/BLK 1ST ANABELA, 02/21/2024, 15:19. FINDINGS/IMPRESSION: Fluoroscopic spot filming was performed to verify placement of spinal needles at the bilateral L3, L4, and L5 levels, as labeled on the films. Appropriate locations of the needle tips were confirmed by injection of iodinated contrast. Approved by: Giovanny Leon M.D. on 06/04/2024 at 20:29
[2024-06-03] MEDS: MIDAZOLAM 2 MG/2 ML VIAL IV (14:20)
[2024-06-03] MEDS: LIDOCAINE 1% 20 ML 5 ML INJ (14:23)
[2024-06-03] MEDS: iopamidoL 15 ML VIAL 3 ML INJ (14:23)
[2024-06-03] MEDS: LIDOCAINE 2% INJ SDV 5ML 1 ML INJ (14:24)
--- NOTE | 2024-06-03 14:46 | PM.PROC.IR.1 ---
Date/Time/Diagnoses Date of procedure: 06/03/24 Time of procedure: 14:46 Pre-procedure diagnosis: 1. FACET ARTHROPATHY Post-procedure diagnosis: same Procedure Notes Procedure: 1. BILATERAL L3, L4 AND L5 DIAGNOSTIC MB BLOCKS Indications: Rohit is referred by Dr. Andrea for treatment of Bilateral Axial LBP. Physician: Adan Ford Total Fluoroscopy time (seconds): 8 Total sedation minutes: 14 Complications: none Procedure in detail & Post-procedure care: DESCRIPTION OF PROCEDURE Fluoroscopically guided, contrast-controlled bilateral L3, L4 AND L5 medial branch blocks with 0.5cc of 2% Lidocaine. Following review of allergy and review of potential side effects and complications, including, but not necessarily limited to, infection, allergic reaction, local tissue breakdown, nerve injury, paralysis, stroke and possible , the patient indicated that the patient understood and agreed to proceed. An informed consent document was signed by the patient, witnessed by a nurse, and placed in the patient's chart. After review of previous anaesthesic history and IV conscious sedation the patient was deemed safe to proceed with today's procedure with IV conscious sedation as ASA class II designation. Safety time-out was performed to confirm patient ID, procedure to be performed and site of procedure. IV sedation was accomplished with a combination of 2mg of Versed was administered by the RN after DO order, titrated to patient comfort during the course of the procedure while the patient remained responsive to all verbal commands In the prone position, following sterile prep and drape of the lumbar region, the right L3, L4 AND L5 anatomical location of the medial branch of the dorsal ramus was identified fluoroscopically. Subsequently an anesthetic skin wheal using 1% lidocaine solution was initiated at each of the anatomical spots. Subsequently then a 22-gauge 3.5-inch spinal needle was atraumatically introduced and advanced under fluoroscopic guidance at each of the corresponding sites at the right L3, L4 and L5 MB. After negative aspiration, 0.2cc of Isovue 200 was injected, confirming placement without vascular or intrathecal uptake. Subsequently then 0.5cc of 2% Lidocaine solution was injected at each of the corresponding sites at the right L3, L4 and L5 medial branch locations. The identical procedure was replicated on the left. The patient tolerated the procedure well without signs or symptoms of complications. The patient tolerated the procedure well without signs or symptoms of complications prior to transfer to the recovery area continued monitoring without incident. Post-procedure, the patient was monitored initiating provocative activities to measure the amount of relief from block of the facetogenic pain. The patient reported a VAS of 7 prior to the procedure and a post-procedure VAS of 1. It has been a pleasure to assist in the diagnostic and therapeutic care of your patient. POST OP INSTRUCTIONS The patient was provided with a Pain Log to complete over the next several hours and subsequent days prior to the patient's follow up with the ordering physician. If the patient has sulfate drier machine operator relief to the solution applied, then they may be a candidate for medial branch rhizotomy. The patient is aware, was provided, once again, with a Pain Log and will follow up with the referring physician for review and clinical correlation
== END 2024-06-03 14:50 | disposition home or self-care (01) ==
PROVIDERS: Family Provider Family Medicine; PCP Family Medicine; Referring Provider Physical Medicine & Rehabilitation; Visit Provider Physical Medicine & Rehabilitation
DX: M47.816 Spondylosis without myelopathy or radiculopathy, lumbar region (principal)
CPT/HCPCS: 64493; 64494; 99152; J2250

== ENCOUNTER 2024-09-02 10:42 | Outpatient (CLI) | payer MEDICARE, OTHER, SELFPAY ==
[2024-09-02] VITALS (10 sets, daily range): BP systolic 108–146; BP diastolic 60–72; PULSE 74–80; RESP 14–16; TEMP 36.9; O2SAT 99–100
[2024-09-02] MEDS: ONDANSETRON 4 MG/2 ML INJ IV (12:02)
[2024-09-02] MEDS: MIDAZOLAM 2 MG/2 ML VIAL IV (12:02)
[2024-09-02] MEDS: BUPIVACAINE 0.5% (PF) 10 ML VIAL 5 ML INJ (12:09)
[2024-09-02] MEDS: LIDOCAINE 1% 20 ML 5 ML INJ (12:09)
--- NOTE | 2024-09-02 12:42 | P.PCN_ITS ---
Date/Time/Diagnoses Date of procedure: 09/02/24 Time of procedure: 12:42 Pre-procedure diagnosis: 1. RECALCITRANT FACET ARTHROPATHY Post-procedure diagnosis: same Procedure Notes Procedure: 1. BILATERAL L4 AND L5 MEDIAL BRANCH RADIOFREQUENCY NEUROTOMY AND S1 DORSAL RAMUS BRANCH RADIOFREQUENCY NEUROTOMY Indications: Rohit is referred by Dr. Andrea for treatment of facet arthropathy. Physician: Adan Ford Total Fluoroscopy time (seconds): 17 Total sedation minutes: 36 Complications: none Procedure in detail & Post-procedure care: DESCRIPTION OF PROCEDURE Bilateral L4 and L5 medial branch radiofrequency neurotomy and bilateral S1 dorsal ramus radiofrequency neurotomy under fluoroscopy with conscious sedation. The patient is well known to this clinic having undergone previous facet injections with good but temporary relief. The patient has experienced appropriate, concordant relief with previous facet and median branch blocks but the patient's pain has been recalcitrant to further conservative measures. Therefore, based upon the patient's relief and persistent symptoms, the patient is considered an appropriate candidate for facet rhizotomy. All of the patient's questions regarding the risks versus benefits of the procedure, including, but not limited to, bleeding, infection, temporary as well as lasting nerve injury, paralysis, stroke, and , as well treatment alternatives were answered to satisfaction. After obtaining informed consent, denial of pertinent drug allergies, as well as being made aware of the potential risks of bleeding, infection, spinal cord trauma, paralysis, temporary and permanent nerve damage, seizure, stroke, and possible , the patient was brought to the fluoroscopy suite and positioned prone on the fluoroscopy table. The lumbar region was prepped in usual sterile fashion and covered with a fenestrated drape in the usual sterile fashion. Appropriate monitors applied including pulse oximeter, pulse, and blood pressure for regular monitoring throughout the procedure. After review of previous anaesthesic history and IV conscious sedation the patient was deemed safe to proceed with today's procedure with IV conscious sedation as ASA class II designation. Safety time-out was performed to confirm patient ID, procedure to be performed and site of procedure. IV sedation was accomplished with a combination of 2mg of Versed administered by the RN after DO order, titrated to patient comfort during the course of the procedure while the patient remained responsive to all verbal commands. After local infiltration using 1% lidocaine, under fluoroscopic guidance, a 10- cm RF insulated needle with a 10-mm active tip was positioned parallel to the junction of the right sacral ala and the superior articulating process where the S1 dorsal ramus resides. Needle placement was confirmed with motor stimulation of .5v on the right which produced local stimulation without radicular component. The stimulation was then increased to 2v with, once again, only local multifidus stimulation without radicular component. The needle was then removed and the identical procedure was performed along the length of the right L5 medial branch with motor stimulation at .7v on the right. The identical procedure was once again performed along the length of the right L4 medial branch with motor stimulation of .5v on the right. The medial branches were then anesthetised with 0.5% Marcaine. This was then followed by two discreet lesions performed at 80 degrees Celsius for 90 seconds each. The identical procedure was repeated on the left. The patient tolerated the procedure well without signs or symptoms of complications prior to transfer to the recovery area continued monitoring without incident. The patient was then transferred to the recovery area where they were observed for an appropriate period of time after the injection. The patient reported a VAS score of 7 prior to the procedure and a post-procedure VAS of 0. POST OP INSTRUCTIONS The patient was provided a Pain Log to continue to record the patient's response to the target-specific procedure prior to the patient's follow-up visit with the referring physician. Additionally, specific post-injection care instructions and a contact number to our office were provided if concerns arise regarding possible complications associated with the procedure are suspected.
--- NOTE | 2024-09-04 17:19 | PC.NURSE ---
Patient was given 2 mg of Midazolam IV at 1202 on 09/02/24 during his procedure along with 4 mg of Zofran IV per verbal orders from Dr. Ford at the start of the procedure.
== END 2024-09-02 12:45 | disposition home or self-care (01) ==
PROVIDERS: Family Provider Family Medicine; PCP Family Medicine; Referring Provider Family Medicine; Visit Provider Physical Medicine & Rehabilitation
DX: M47.816 Spondylosis without myelopathy or radiculopathy, lumbar region (principal)
CPT/HCPCS: 64635; 64636; 99152; 99153; J2250; J2405